=== PATIENT | male | born 1950 | race Caucasian/White ===

== ENCOUNTER 2022-06-18 10:28 | Inpatient (IN) | payer MEDICARE, BC, OTHER ==
[~2022-06-18] VITALS: Ht 175.3 cm; Wt 95.3 kg
[2022-06-18] MEDS ORDERED: ASPI81TA31 PO (10:39)
[2022-06-18 11:05] LABS: HEMATOCRIT 44.6 % (36.7-47.1); MEAN CORPUSCULAR HEMOGLOBIN 30.9 uug (23.8-33.4); MEAN CORPUSCULAR VOLUME 92.1 fL (73.0-96.2); PLATELET COUNT (AUTO) 179 K/uL (152-348)
[2022-06-18 11:27] LABS: ALANINE AMINOTRANSFERASE 21 U/L (16-63); ALKALINE PHOSPHATASE 91 U/L (50-136); ASPARTATE AMINOTRANSFERASE 21 U/L (15-37); BILIRUBIN,DIRECT 0.1 mg/dL (0.0-0.2); BILIRUBIN,TOTAL 0.5 mg/dL (0.2-1.0); CARBON DIOXIDE 28 mmol/L (21-32); CHLORIDE 103 mmol/L (98-107); CREATININE 0.7 mg/dL (0.6-1.3); GLUCOSE 112 mg/dL (74-106); TOTAL PROTEIN, SERUM 7.4 g/dL (6.4-8.2); UREA NITROGEN, BLOOD 18 mg/dL (7-18)
[2022-06-18] MEDS ORDERED: ACETAMINOPHEN 325 MG TABLET PO PRN (13:00)
[2022-06-18] MEDS ORDERED: REMEDY ESSENTIAL ZINC PASTE 113 GM TP PRN (13:00)
[2022-06-18] MEDS ORDERED: ONDANSETRON 4 MG/2 ML VIAL IV PRN (13:00)
[2022-06-18] MEDS ORDERED: HYDROCODONE/APAP 5-325MG TABLET PO PRN (13:00)
[2022-06-18] MEDS ORDERED: MAGNESIUM HYDROXIDE 30 ML LIQUID UDC PO PRN (13:00)
[2022-06-18 14:23] VITALS: BP 144/81
[2022-06-18] MEDS ORDERED: LIPITOR PO (15:51)
[2022-06-18] MEDS ORDERED: ESCI20TA PO (15:51)
[2022-06-18] MEDS ORDERED: METO25TA6 PO (15:51)
[2022-06-18] MEDS ORDERED: LAMO100T2 PO (15:51)
[2022-06-18] MEDS ORDERED: TERB250T52 PO (17:09)
[2022-06-18] MEDS ORDERED: ATOR40TA PO (17:12)
[2022-06-18 20:00] VITALS: BP 127/67
[2022-06-18] MEDS: LAMOTRIGINE 100 MG TABLET PO SCH (20:49)
[2022-06-18] MEDS: METOPROLOL TARTRATE 25 MG TABLET PO SCH (20:50)
[2022-06-19] VITALS (7 sets, daily range): BP systolic 96–142; BP diastolic 56–87
[2022-06-19 06:42] LABS: HEMATOCRIT 43.2 % (36.7-47.1); MEAN CORPUSCULAR HEMOGLOBIN 31.5 uug (23.8-33.4); MEAN CORPUSCULAR VOLUME 92.4 fL (73.0-96.2); PLATELET COUNT (AUTO) 183 K/uL (152-348)
[2022-06-19] MEDS: PANTOPRAZOLE SODIUM 40 MG TABLET.DR PO SCH (06:48)
[2022-06-19 07:03] LABS: CREATININE 0.7 mg/dL (0.6-1.3); POTASSIUM 4.2 mmol/L (3.5-5.1)
[2022-06-19 07:16] LABS: THYROID STIMULATING HORMONE 2.211 mIU/mL (0.358-3.740)
[2022-06-19] MEDS: LAMOTRIGINE 100 MG TABLET PO SCH ×2 (08:42→16:31)
[2022-06-19] MEDS: ASPIRIN 81 MG TAB.CHEW PO SCH (08:42)
[2022-06-19] MEDS: ESCITALOPRAM OXALATE 10 MG TABLET PO SCH (08:42)
[2022-06-19] MEDS: METOPROLOL TARTRATE 25 MG TABLET PO SCH ×2 (08:44→16:31)
[2022-06-19] MEDS ORDERED: ATORVASTATIN 40 MG TABLET PO SCH ×2 (09:00→21:00)
[2022-06-19] MEDS ORDERED: TERBINAFINE 250 MG TABLET PO SCH (09:00)
[2022-06-20 00:03] VITALS: BP 120/60
[2022-06-20 04:12] VITALS: BP 128/74
[2022-06-20] MEDS: PANTOPRAZOLE SODIUM 40 MG TABLET.DR PO SCH (06:42)
[2022-06-20] MEDS: ASPIRIN 81 MG TAB.CHEW PO SCH (08:55)
[2022-06-20] MEDS: LAMOTRIGINE 100 MG TABLET PO SCH (08:55)
[2022-06-20] MEDS: ESCITALOPRAM OXALATE 10 MG TABLET PO SCH (08:55)
[2022-06-20] MEDS: METOPROLOL TARTRATE 25 MG TABLET PO SCH (08:56)
[2022-06-20 12:00] VITALS: BP 124/82
== END 2022-06-20 15:15 | disposition home or self-care (01) | DRG 206 ==
LOC: ER 10:28 → TELE3 13:59 → MEDSURG3 06-20 10:25
PROVIDERS: ADMIT Student in an Organized Health Care Education/Training Program; ATTEND Student in an Organized Health Care Education/Training Program
DX: M94.0 Chondrocostal junction syndrome [Tietze] (principal); I25.10 Atherosclerotic heart disease of native coronary artery without angina pectoris; Z95.1 Presence of aortocoronary bypass graft; E78.5 Hyperlipidemia, unspecified; Z20.822 Contact with and (suspected) exposure to COVID-19; I10 Essential (primary) hypertension; Z91.199 Patient's noncompliance with other medical treatment and regimen due to unspecified reason; Z79.82 Long term (current) use of aspirin; Z91.14 Patient's other noncompliance with medication regimen
CPT/HCPCS: 36415; 71045; 83735; 84100; 84443; 84484; 85025; 93005; 93307; A4663; G0378; J7040